=== PATIENT | male | born 2000 | race Caucasian/White ===

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

== ENCOUNTER 2018-05-19 23:11 | Emergency (ER) | payer OTHER ==
[~2018-05-19] VITALS: Ht 172.7 cm; Wt 51.7 kg
[~2018-05-19 23:11] MED LIST changes: -GADOBUTROL 10 MMOL/10 ML VIAL ONE; -GLUCAGON 1 MG ONE
[2018-05-20] MEDS ORDERED: MORPHINE SULFATE 4 MG/ML, 1ML ONE
[2018-05-20] MEDS ORDERED: MORPHINE SULFATE 4 MG/ML, 1ML IVPush PRN
[2018-05-20] MEDS ORDERED: SODIUM CHLORIDE 0.9% 1,000ML IVBOLUS ONE
[2018-05-20 00:20] LABS: ALANINE AMINOTRANSFERASE 11 U/L (12-78); ANION GAP 9 mmol/L (5-15); CALCIUM 8.7 mg/dL (8.5-10.1); CHLORIDE 104 mmol/L (98-107); CREATININE 0.93 mg/dL (0.7-1.3)
[2018-05-20 00:22] LABS: ALKALINE PHOSPHATASE 93 U/L (45-117); BILIRUBIN,TOTAL 0.4 mg/dL (0.2-1.0); TOTAL PROTEIN 7.2 g/dL (6.4-8.2)
[2018-05-20 00:25] LABS: MEAN CORPUSCULAR HEMOGLOBIN 30.6 pg (27.5-34.5); MEAN CORPUSCULAR HGB CONC 33.8 g/dL (33.2-36.2); MEAN CORPUSCULAR VOLUME 90.4 fL (81-97); MEAN PLATELET VOLUME 10.3 fL (7.4-10.4); PLATELET COUNT 267 x10^3/uL (130-400); RED BLOOD COUNT 4.99 x10^6/uL (4.38-5.82); RED CELL DISTRIBUTION WIDTH 12.7 % (9.4-14.8)
[2018-05-20 00:50] LABS: MD YES
[2018-05-20 00:52] LABS: LYMPH#(MANUAL) 3.48 x10^3/uL (1-6.1); LYMPHS% (MANUAL) 15 % (22-44); MONOS#(MANUAL) 1.16 x10^3/uL (0.3-2.7); MONOS% (MANUAL) 5 % (2-9); SEG#(MANUAL) 18.56 x10^3/uL (1.8-8); SEGS% (MANUAL) 80 % (42-75)
[2018-05-20 00:53] LABS: <PLATELET ESTIMATE> ADEQUATE; <RBC MORPHOLOGY> NORMAL; LARGE PLATELETS 1+
[2018-05-20 01:10] VITALS: BP 112/62
== END 2018-05-20 01:32 | disposition home or self-care (01) ==
LOC: ED 23:59
DX: K52.9 Noninfective gastroenteritis and colitis, unspecified (principal); K50.10 Crohn's disease of large intestine without complications
CPT/HCPCS: 36415; 80053; 83690; 85025; 96361; 96374; 99284; J7030

== ENCOUNTER → 2018-05-25 | Outpatient (CLI) | payer OTHER ==
[2018-05-25 15:48] LABS: CLOSTRIDIUM DIFFICILE ANTIGEN NEGATIVE; CLOSTRIDIUM DIFFICILE TOXIN NEGATIVE (Negative); CRYPTOSPORIDIUM ANTIGEN Negative (Negative)
== END | disposition home or self-care (01) ==
LOC: LAB 14:26
PROVIDERS: ATTEND Internal Medicine
DX: K50.90 Crohn's disease, unspecified, without complications (principal)
CPT/HCPCS: 36415; 86480; 86706; 87046; 87324; 87328; 87329; 87340; 87427; 89055

== ENCOUNTER 2018-06-02 19:14 | Inpatient (IN) | payer OTHER ==
[~2018-06-02] VITALS: Ht 172.7 cm; Wt 47.7 kg
[2018-06-02 19:58] LABS: MEAN CORPUSCULAR HEMOGLOBIN 30.9 pg (27.5-34.5); MEAN CORPUSCULAR VOLUME 90.7 fL (81-97); MEAN PLATELET VOLUME 9.3 fL (7.4-10.4); PLATELET COUNT 361 x10^3/uL (130-400); RED BLOOD COUNT 4.53 x10^6/uL (4.38-5.82)
[2018-06-02 20:07] LABS: ALANINE AMINOTRANSFERASE 13 U/L (12-78); ALBUMIN 2.9 g/dL (3.4-5.0); ANION GAP 13 mmol/L (5-15); CALCIUM 8.8 mg/dL (8.5-10.1); CHLORIDE 98 mmol/L (98-107); CREATININE 0.81 mg/dL (0.7-1.3)
[2018-06-02 20:10] LABS: ALKALINE PHOSPHATASE 90 U/L (45-117); BILIRUBIN,TOTAL 0.6 mg/dL (0.2-1.0); TOTAL PROTEIN 7.5 g/dL (6.4-8.2)
[2018-06-02 20:25] LABS: MD YES
[2018-06-02 20:27] LABS: <RBC MORPHOLOGY> NORMAL; BAND#(MANUAL) 0.71 x10^3/uL; BANDS%(MANUAL) 3 % (0-7); LYMPH#(MANUAL) 2.38 x10^3/uL (1-6.1); LYMPHS% (MANUAL) 10 % (22-44); MONOS#(MANUAL) 0.95 x10^3/uL (0.3-2.7); MONOS% (MANUAL) 4 % (2-9); SEG#(MANUAL) 19.75 x10^3/uL (1.8-8); SEGS% (MANUAL) 83 % (42-75)
[2018-06-02 20:28] LABS: <PLATELET ESTIMATE> ADEQUATE; <PLT MORPHOLOGY> NORMAL PLT MORPH
[2018-06-02] MEDS ORDERED: MORPHINE SULFATE 4 MG/ML, 1ML IVPush PRN (21:00)
[2018-06-02] MEDS ORDERED: SODIUM CHLORIDE FLUSH 10ML SYR IVF ONE (21:00)
[2018-06-02] MEDS ORDERED: MORPHINE SULFATE 4 MG/ML, 1ML ONE (21:12)
[2018-06-02] MEDS ORDERED: PROMETHAZINE 25MG TABLET PO ONE (21:50)
[2018-06-02] MEDS ORDERED: methylPREDNISolone SOD SUCC 125 MG/2 ML IVPush ONE (22:30)
[2018-06-02] MEDS ORDERED: methylPREDNISolone SOD SUCC 125 MG/2 ML ONE (22:53)
[2018-06-02] MEDS ORDERED: ONDANSETRON 2MG/ML, 2ML IVPush PRN (23:00)
[2018-06-02 23:44] VITALS: BP 115/73
[2018-06-03] MEDS ORDERED: PROMETHAZINE 25 MG/ML, 1ML IM PRN (00:30)
[2018-06-03] MEDS: D5%-0.45% NACL 1,000 ML IV SCH ×2 (01:12→09:00)
[2018-06-03] MEDS: morphine SULFATE 10 MG/ML, 1ML IVPush PRN ×4 (01:19→12:29)
[2018-06-03 03:10] VITALS: BP 107/56
[2018-06-03] MEDS ORDERED: ONDANSETRON ODT 4 MG PO PRN (04:00)
[2018-06-03 07:36] VITALS: BP 107/64
[2018-06-03] MEDS ORDERED: methylPREDNISolone SOD SUCC 40 MG/ML IV SCH (08:00)
[2018-06-03 09:47] LABS: MEAN CORPUSCULAR HEMOGLOBIN 30.4 pg (27.5-34.5); MEAN CORPUSCULAR HGB CONC 33.9 g/dL (33.2-36.2); MEAN CORPUSCULAR VOLUME 89.9 fL (81-97); MEAN PLATELET VOLUME 9.3 fL (7.4-10.4); PLATELET COUNT 329 x10^3/uL (130-400); RED BLOOD COUNT 4.28 x10^6/uL (4.38-5.82); RED CELL DISTRIBUTION WIDTH 13.1 % (9.4-14.8)
[2018-06-03] MEDS ORDERED: PRED20TA PO (10:55)
[2018-06-03 11:16] LABS: MD YES
[2018-06-03 11:18] LABS: BAND#(MANUAL) 1.42 x10^3/uL; BANDS%(MANUAL) 6 % (0-7); LYMPH#(MANUAL) 0.94 x10^3/uL (1-6.1); LYMPHS% (MANUAL) 4 % (22-44); MONOS#(MANUAL) 0.47 x10^3/uL (0.3-2.7); MONOS% (MANUAL) 2 % (2-9); SEG#(MANUAL) 20.77 x10^3/uL (1.8-8); SEGS% (MANUAL) 88 % (42-75)
[2018-06-03 11:20] LABS: <PLATELET ESTIMATE> ADEQUATE; <PLT MORPHOLOGY> NORMAL PLT MORPH; <RBC MORPHOLOGY> NORMAL
== END 2018-06-03 12:57 | disposition home or self-care (01) | DRG 387 ==
LOC: ED 21:56 → EDIP 22:49 → 3NW 23:39 → DCLOUNGE 06-03 12:49
PROVIDERS: ADMIT Internal Medicine; ATTEND Internal Medicine
DX: K50.811 Crohn's disease of both small and large intestine with rectal bleeding (principal); D72.829 Elevated white blood cell count, unspecified
CPT/HCPCS: 36415; 80053; 83690; 85025; 86850; 86900; 96374; 96375; G0378; J2270; J2920; J2930

== ENCOUNTER 2020-02-18 07:39 | Emergency (ER) | payer OTHER ==
[~2020-02-18] VITALS: Ht 172.7 cm; Wt 47.4 kg
[~2020-02-18 07:39] MED LIST changes: +PRED20TA PO
[2020-02-18] MEDS ORDERED: ONDANSETRON 2MG/ML, 2ML IVPush ONE (08:00)
[2020-02-18] MEDS ORDERED: SODIUM CHLORIDE 0.9% 1,000ML IVBOLUS ONE (08:00)
[2020-02-18] MEDS ORDERED: MORPHINE SULFATE 4 MG/ML, 1ML ONE ×2 (08:14→09:25)
[2020-02-18] MEDS ORDERED: ONDANSETRON 2MG/ML, 2ML ONE (08:14)
[2020-02-18] MEDS: MORPHINE SULFATE 4 MG/ML, 1ML IVPush PRN ×2 (08:15→09:27)
[2020-02-18 08:26] LABS: MEAN CORPUSCULAR VOLUME 87.8 fL (81-97); MEAN PLATELET VOLUME 9.5 fL (7.4-10.4); PLATELET COUNT 341 x10^3/uL (130-400); RED BLOOD COUNT 5.25 x10^6/uL (4.38-5.82); RED CELL DISTRIBUTION WIDTH 13.3 % (9.4-14.8)
[2020-02-18 08:37] LABS: ALANINE AMINOTRANSFERASE 12 U/L (12-78); ALBUMIN 3.1 g/dL (3.4-5.0); ANION GAP 10 mmol/L (5-15); CHLORIDE 103 mmol/L (98-107); CREATININE 0.88 mg/dL (0.7-1.3)
[2020-02-18 08:43] LABS: ALKALINE PHOSPHATASE 96 U/L (45-117); BILIRUBIN,TOTAL 0.5 mg/dL (0.2-1.0); TOTAL PROTEIN 7.8 g/dL (6.4-8.2)
[2020-02-18 08:44] LABS: HCT (SEDRATE) 46.1 % (39.2-51.8)
[2020-02-18 08:45] LABS: BASOPHILS # (AUTO) 0.01 x10^3/uL (0-0.1); BASOPHILS % (AUTO) 0 % (0-1); EOSINOPHILS % (AUTO) 1 % (1-7); LYMPHOCYTES # (AUTO) 1.53 x10^3/uL (1-3.4); LYMPHOCYTES % (AUTO) 8 % (22-44); MD SCAN; MONOCYTES # (AUTO) 0.61 x10^3/uL (0.2-0.8); MONOCYTES % (AUTO) 3 % (2-9); NEUTROPHILS % (AUTO) 88 % (42-75)
[2020-02-18] MEDS ORDERED: OMNIPAQUE 350 MG/ML, 100ML BOTTLE ONE (09:13)
[2020-02-18] MEDS ORDERED: metroNIDAZOLE 500 MG TABLET PO ONE (11:00)
[2020-02-18] MEDS ORDERED: metroNIDAZOLE 500 MG TABLET ONE (11:05)
[2020-02-18 11:07] LABS: MICROSCOPIC NOT IND
[2020-02-18 11:11] VITALS: BP 111/60
== END 2020-02-18 11:20 | disposition home or self-care (01) ==
LOC: ED 08:27
DX: K50.00 Crohn's disease of small intestine without complications (principal); K92.2 Gastrointestinal hemorrhage, unspecified; D72.829 Elevated white blood cell count, unspecified
CPT/HCPCS: 36415; 74177; 80053; 81003; 83605; 83690; 83735; 84100; 85025; 85651; 86140; 87040; 96361; 96374; 96375; 96376; 99285; J2270; J2405; J7030; J7512; Q9967

== ENCOUNTER 2020-02-27 04:06 | Emergency (ER) | payer OTHER ==
[~2020-02-27] VITALS: Ht 170.2 cm; Wt 64.8 kg
[2020-02-27] MEDS ORDERED: SODIUM CHLORIDE 0.9% 1,000 ML IV ONE (04:41)
[2020-02-27] MEDS ORDERED: SODIUM CHLORIDE 0.9% 1,000ML IVBOLUS ONE (05:00)
[2020-02-27] MEDS ORDERED: MORPHINE SULFATE 4 MG/ML, 1ML IVPush PRN (05:00)
[2020-02-27] MEDS ORDERED: ONDANSETRON 2MG/ML, 2ML IVPush ONE (05:00)
[2020-02-27] MEDS ORDERED: FAMOTIDINE 20 MG/2 ML IVPush ONE (05:00)
[2020-02-27 05:01] LABS: MEAN CORPUSCULAR HEMOGLOBIN 28.9 pg (27.5-34.5); MEAN CORPUSCULAR HGB CONC 33.2 g/dL (33.2-36.2); MEAN CORPUSCULAR VOLUME 87.1 fL (81-97); MEAN PLATELET VOLUME 9.6 fL (7.4-10.4); PLATELET COUNT 331 x10^3/uL (130-400); RED BLOOD COUNT 4.99 x10^6/uL (4.38-5.82); RED CELL DISTRIBUTION WIDTH 13.9 % (9.4-14.8)
[2020-02-27 05:08] LABS: ALANINE AMINOTRANSFERASE 18 U/L (12-78); ANION GAP 6 mmol/L (5-15); CALCIUM 8.6 mg/dL (8.5-10.1); CHLORIDE 104 mmol/L (98-107); CREATININE 0.82 mg/dL (0.7-1.3)
[2020-02-27 05:14] LABS: ALKALINE PHOSPHATASE 89 U/L (45-117); BILIRUBIN,TOTAL 0.5 mg/dL (0.2-1.0); TOTAL PROTEIN 7.4 g/dL (6.4-8.2)
[2020-02-27] MEDS ORDERED: MORPHINE SULFATE 4 MG/ML, 1ML ONE (05:42)
[2020-02-27] MEDS ORDERED: ONDANSETRON 2MG/ML, 2ML ONE (05:42)
[2020-02-27] MEDS ORDERED: FAMOTIDINE 20 MG/2 ML ONE (05:43)
[2020-02-27 05:48] LABS: BASOPHILS # (AUTO) 0.07 x10^3/uL (0-0.1); BASOPHILS % (AUTO) 0 % (0-1); EOSINOPHILS # (AUTO) 0.11 x10^3/uL (0-0.4); EOSINOPHILS % (AUTO) 1 % (1-7); LYMPHOCYTES # (AUTO) 2.52 x10^3/uL (1-3.4); LYMPHOCYTES % (AUTO) 12 % (22-44); MD SCAN; MONOCYTES # (AUTO) 0.71 x10^3/uL (0.2-0.8); MONOCYTES % (AUTO) 3 % (2-9); NEUTROPHILS # (AUTO) 18.01 x10^3/uL (1.8-6.8); NEUTROPHILS % (AUTO) 84 % (42-75)
--- NOTE | 2020-02-27 06:36 | NUR ---
Pt resting quietly and states pain has decreased to 5/10 now. Pt w/ soup broth at bedside and provided vomit bag.
--- NOTE | 2020-02-27 06:50 | NUR ---
Report from Rajeev BONNER. Pt resting in bed, states nausea and pain improved after meds, denies other needs.
[2020-02-27 07:44] LABS: MICROSCOPIC INDICATED
[2020-02-27 08:40] VITALS: BP 108/59
== END 2020-02-27 08:42 | disposition home or self-care (01) ==
LOC: ED 04:41
DX: K50.00 Crohn's disease of small intestine without complications (principal); R11.2 Nausea with vomiting, unspecified; R10.84 Generalized abdominal pain; F17.200 Nicotine dependence, unspecified, uncomplicated
CPT/HCPCS: 36415; 76700; 80053; 81001; 83690; 85025; 87086; 96361; 96374; 96375; 99284; J2270; J2405; J3490; J7030

== ENCOUNTER 2020-03-01 13:21 | Inpatient (IN) | payer OTHER ==
[~2020-03-01] VITALS: Ht 170.2 cm; Wt 48.8 kg
--- NOTE | 2020-03-01 14:11 | NUR ---
[employer]:PT TO ROOM FROM LOBBY
[2020-03-01] MEDS ORDERED: ONDANSETRON 2MG/ML, 2ML IVPush ONE (15:00)
[2020-03-01] MEDS ORDERED: SODIUM CHLORIDE 0.9% 1,000ML IVBOLUS ONE (15:00)
[2020-03-01] MEDS ORDERED: SODIUM CHLORIDE FLUSH 10ML SYR IVF ONE (15:00)
[2020-03-01] MEDS ORDERED: ONDANSETRON 2MG/ML, 2ML ONE (15:00)
[2020-03-01] MEDS ORDERED: MORPHINE SULFATE 4 MG/ML, 1ML ONE ×2 (15:01→19:57)
[2020-03-01] MEDS: MORPHINE SULFATE 4 MG/ML, 1ML IVPush PRN ×2 (15:03→19:58)
[2020-03-01] MEDS ORDERED: methylPREDNISolone SOD SUCC 40 MG/ML ONE (15:11)
[2020-03-01 15:19] LABS: ALANINE AMINOTRANSFERASE 14 U/L (12-78); ALBUMIN 2.9 g/dL (3.4-5.0); ANION GAP 8 mmol/L (5-15); CALCIUM 8.7 mg/dL (8.5-10.1); CHLORIDE 101 mmol/L (98-107)
[2020-03-01 15:22] LABS: ALKALINE PHOSPHATASE 82 U/L (45-117); BILIRUBIN,TOTAL 0.7 mg/dL (0.2-1.0); CREATININE 0.78 mg/dL (0.7-1.3); TOTAL PROTEIN 7.2 g/dL (6.4-8.2)
[2020-03-01 15:25] LABS: MEAN CORPUSCULAR HEMOGLOBIN 28.7 pg (27.5-34.5); MEAN CORPUSCULAR VOLUME 87.1 fL (81-97); MEAN PLATELET VOLUME 9.3 fL (7.4-10.4); PLATELET COUNT 354 x10^3/uL (130-400); RED BLOOD COUNT 4.78 x10^6/uL (4.38-5.82); RED CELL DISTRIBUTION WIDTH 13.8 % (9.4-14.8)
[2020-03-01] MEDS ORDERED: methylPREDNISolone SOD SUCC 40 MG/ML IV ONE (15:30)
[2020-03-01 15:51] LABS: BASOPHILS # (AUTO) 0.06 x10^3/uL (0-0.1); BASOPHILS % (AUTO) 1 % (0-1); EOSINOPHILS # (AUTO) 0.12 x10^3/uL (0-0.4); EOSINOPHILS % (AUTO) 1 % (1-7); LYMPHOCYTES # (AUTO) 1.78 x10^3/uL (1-3.4); LYMPHOCYTES % (AUTO) 13 % (22-44); MD SCAN; MONOCYTES # (AUTO) 0.53 x10^3/uL (0.2-0.8); MONOCYTES % (AUTO) 4 % (2-9); NEUTROPHILS # (AUTO) 11.09 x10^3/uL (1.8-6.8); NEUTROPHILS % (AUTO) 82 % (42-75)
[2020-03-01] MEDS ORDERED: LABETALOL 5MG/ML, 20ML IVPush PRN (16:30)
[2020-03-01] MEDS ORDERED: PROMETHAZINE 25 MG/ML, 1ML IM PRN (16:30)
[2020-03-01] MEDS ORDERED: ACETAMINOPHEN 325 MG TABLET PO PRN (16:30)
[2020-03-01] MEDS: methylPREDNISolone SOD SUCC 125 MG/2 ML IVPush SCH ×2 (16:30→22:32)
--- NOTE | 2020-03-01 16:42 | NUR ---
PT TO IMAGING AT THIS TIME.
[2020-03-01] MEDS ORDERED: GADOTERATE 5 MMOL/10 ML VIAL ONE (16:59)
[2020-03-01 17:06] LABS: TOTAL IRON BINDING CAPACITY 219 mcg/dL (250-450)
[2020-03-01 17:25] LABS: % IRON SATURATION 21 % (20-55); IRON LEVEL 45 mcg/dL (65-175)
[2020-03-01 17:33] LABS: HCT (SEDRATE) 41.6 % (39.2-51.8)
--- NOTE | 2020-03-01 18:08 | NUR ---
PT RRESTING IN BED, MOM CONTINUES AT BEDSIDE. PT UPDATED ON PLAN OF CARE. VERBALIZES UNDERSTANDING. DENIES ANY NEEDS OR CONCERNS AT THIS TIME. CALL LIGHT IN REACH.
--- NOTE | 2020-03-01 20:03 | NUR ---
ATTEMPTED TO CALL REPORT. RN OCCUPIED WITH ANOTHER PATIENT-TO CALL BACK
--- NOTE | 2020-03-01 20:43 | NUR ---
REPORT TO HA CRAIN. PT AWAITING TRANSPORT AT THIS TIME.
[2020-03-01] MEDS: SODIUM CHLORIDE 0.9% 1,000 ML IV SCH (21:15)
[2020-03-01 21:29] VITALS: BP 122/64
[2020-03-01] MEDS: ONDANSETRON 2MG/ML, 2ML IVPush PRN (21:31)
[2020-03-01 23:28] LABS: CLOSTRIDIUM DIFFICILE ANTIGEN NEGATIVE; CLOSTRIDIUM DIFFICILE TOXIN NEGATIVE (Negative)
[2020-03-02] MEDS: MORPHINE SULFATE 4 MG/ML, 1ML IVPush PRN ×5 (01:41→20:21)
[2020-03-02 02:18] VITALS: BP 102/61
[2020-03-02] MEDS: ONDANSETRON 2MG/ML, 2ML IVPush PRN ×4 (03:38→22:34)
[2020-03-02 04:28] LABS: MEAN CORPUSCULAR HEMOGLOBIN 28.9 pg (27.5-34.5); MEAN CORPUSCULAR HGB CONC 33.4 g/dL (33.2-36.2); MEAN CORPUSCULAR VOLUME 86.6 fL (81-97); MEAN PLATELET VOLUME 9.9 fL (7.4-10.4); PLATELET COUNT 355 x10^3/uL (130-400); RED CELL DISTRIBUTION WIDTH 13.6 % (9.4-14.8)
[2020-03-02 04:34] LABS: ALBUMIN 2.9 g/dL (3.4-5.0); ANION GAP 4 mmol/L (5-15); CALCIUM 8.6 mg/dL (8.5-10.1); CHLORIDE 106 mmol/L (98-107)
[2020-03-02] MEDS: methylPREDNISolone SOD SUCC 125 MG/2 ML IVPush SCH ×4 (04:36→22:34)
[2020-03-02 04:38] LABS: ALANINE AMINOTRANSFERASE 17 U/L (12-78); ALKALINE PHOSPHATASE 77 U/L (45-117); BILIRUBIN,TOTAL 0.7 mg/dL (0.2-1.0); CREATININE 0.69 mg/dL (0.7-1.3)
[2020-03-02 04:45] LABS: BASOPHILS # (AUTO) 0.01 x10^3/uL (0-0.1); BASOPHILS % (AUTO) 0 % (0-1); EOSINOPHILS # (AUTO) 0.01 x10^3/uL (0-0.4); EOSINOPHILS % (AUTO) 0 % (1-7); LYMPHOCYTES # (AUTO) 0.54 x10^3/uL (1-3.4); LYMPHOCYTES % (AUTO) 3 % (22-44); MD SCAN; MONOCYTES # (AUTO) 0.06 x10^3/uL (0.2-0.8); MONOCYTES % (AUTO) 0 % (2-9); NEUTROPHILS # (AUTO) 17.01 x10^3/uL (1.8-6.8); NEUTROPHILS % (AUTO) 97 % (42-75)
[2020-03-02] MEDS: SODIUM CHLORIDE 0.9% 1,000 ML IV SCH ×2 (06:28→16:31)
[2020-03-02 07:05] VITALS: BP 120/66
[2020-03-02 12:55] VITALS: BP 124/60
[2020-03-02 18:41] VITALS: BP 102/52
[2020-03-03 00:23] VITALS: BP 93/65
[2020-03-03] MEDS: SODIUM CHLORIDE 0.9% 1,000 ML IV SCH ×3 (02:30→20:15)
[2020-03-03] MEDS: MORPHINE SULFATE 4 MG/ML, 1ML IVPush PRN ×4 (02:53→22:14)
[2020-03-03] MEDS: ONDANSETRON 2MG/ML, 2ML IVPush PRN ×3 (04:35→17:25)
[2020-03-03] MEDS: methylPREDNISolone SOD SUCC 125 MG/2 ML IVPush SCH ×4 (04:35→22:14)
[2020-03-03 06:12] LABS: MEAN CORPUSCULAR HEMOGLOBIN 28.8 pg (27.5-34.5); MEAN CORPUSCULAR HGB CONC 33.1 g/dL (33.2-36.2); PLATELET COUNT 311 x10^3/uL (130-400); RED CELL DISTRIBUTION WIDTH 13.6 % (9.4-14.8)
[2020-03-03 06:32] LABS: MD YES
[2020-03-03 06:35] LABS: <PLATELET ESTIMATE> ADEQUATE; <PLT MORPHOLOGY> NORMAL PLT MORPH; <RBC MORPHOLOGY> NORMAL; BAND#(MANUAL) 0.78 x10^3/uL; BANDS%(MANUAL) 7 % (0-7); LYMPH#(MANUAL) 1.11 x10^3/uL (1-3.4); LYMPHS% (MANUAL) 10 % (22-44); MONOS#(MANUAL) 0.33 x10^3/uL (0.3-2.7); MONOS% (MANUAL) 3 % (2-9); SEG#(MANUAL) 8.88 x10^3/uL (1.8-6.8); SEGS% (MANUAL) 80 % (42-75)
[2020-03-03 06:38] VITALS: BP 117/67
[2020-03-03 13:42] VITALS: BP 115/65
[2020-03-03 19:54] VITALS: BP 115/68
[2020-03-04 00:24] VITALS: BP 104/52
[2020-03-04] MEDS: methylPREDNISolone SOD SUCC 125 MG/2 ML IVPush SCH ×4 (04:51→22:30)
[2020-03-04] MEDS: SODIUM CHLORIDE 0.9% 1,000 ML IV SCH ×2 (07:15→18:36)
[2020-03-04] MEDS: MORPHINE SULFATE 4 MG/ML, 1ML IVPush PRN ×4 (07:15→22:35)
[2020-03-04 07:21] VITALS: BP 107/52
[2020-03-04 13:30] VITALS: BP 123/68
[2020-03-04] MEDS: OXYcodone/APAP 5/325MG TABLET PO PRN (14:49)
[2020-03-04 18:57] VITALS: BP 92/51
[2020-03-05 00:34] VITALS: BP 112/64
[2020-03-05] MEDS: SODIUM CHLORIDE 0.9% 1,000 ML IV SCH ×2 (04:55→14:46)
[2020-03-05] MEDS: methylPREDNISolone SOD SUCC 125 MG/2 ML IVPush SCH ×2 (05:10→11:10)
[2020-03-05] MEDS: MORPHINE SULFATE 4 MG/ML, 1ML IVPush PRN ×2 (05:10→09:55)
[2020-03-05 07:37] VITALS: BP 119/53
[2020-03-05 12:21] VITALS: BP 101/66
[2020-03-05] MEDS: OXYcodone/APAP 5/325MG TABLET PO PRN ×2 (17:14→23:13)
[2020-03-05 18:52] VITALS: BP 99/57
[2020-03-06] MEDS: SODIUM CHLORIDE 0.9% 1,000 ML IV SCH (00:08)
[2020-03-06 01:41] VITALS: BP 102/57
[2020-03-06 06:24] VITALS: BP 121/66
[2020-03-06] MEDS ORDERED: methylPREDNISolone SOD SUCC 125 MG/2 ML IVPush SCH (09:00)
[2020-03-06] MEDS: OXYcodone/APAP 5/325MG TABLET PO PRN (09:08)
[2020-03-06] MEDS ORDERED: ACET325T26 PO (12:27)
[2020-03-06] MEDS ORDERED: PRED20TA PO ×3 (12:27→12:39)
== END 2020-03-06 14:31 | disposition home or self-care (01) | DRG 385 ==
LOC: ED 15:59 → EDIP 16:11 → 3N 21:08 → DCLOUNGE 03-06 14:25
PROVIDERS: ADMIT Internal Medicine; ATTEND Internal Medicine
DX: K50.90 Crohn's disease, unspecified, without complications (principal); E43 Unspecified severe protein-calorie malnutrition; E87.1 Hypo-osmolality and hyponatremia; Z68.1 Body mass index [BMI] 19.9 or less, adult; K62.5 Hemorrhage of anus and rectum; F17.210 Nicotine dependence, cigarettes, uncomplicated; D72.829 Elevated white blood cell count, unspecified; D64.9 Anemia, unspecified; E86.0 Dehydration; K12.0 Recurrent oral aphthae; K21.9 Gastro-esophageal reflux disease without esophagitis
CPT/HCPCS: 36415; 74183; 80053; 83540; 83550; 83993; 85025; 85651; 86704; 86705; 86706; 86708; 86803; 87324; 87340; 96361; 96374; 96375; 96376; 99285; A9575; G0378; J2405; J2270; J2920; J2930; J7030; J7512

== ENCOUNTER → 2020-03-30 | Outpatient (CLI) | payer OTHER ==
[~2020-03-30] MED LIST changes: +ACET325T26 PO
== END | disposition home or self-care (01) ==
LOC: LAB 12:11
PROVIDERS: ATTEND Internal Medicine
DX: K50.10 Crohn's disease of large intestine without complications (principal)
CPT/HCPCS: 36415; 86480

== ENCOUNTER 2020-05-05 16:35 | Inpatient (IN) | payer OTHER ==
[~2020-05-05] VITALS: Ht 170.2 cm; Wt 54.5 kg
[2020-05-05] MEDS ORDERED: ADAL40PE2 SQ (17:00)
--- NOTE | 2020-05-05 17:01 | NUR ---
TASK RN: CONTACT WITH PT. PT HERE WITH C/O ABD PAIN, N/V FOR PAST 2 DAYS. PT WITH HX OF CROHNS DISEASE. PT WITH GRIMISES. DR PÉREZ AT BEDSIDE TO EVAL PT
[2020-05-05] MEDS ORDERED: ONDANSETRON 2MG/ML, 2ML ONE (17:14)
[2020-05-05] MEDS ORDERED: MORPHINE SULFATE 4 MG/ML, 1ML ONE ×2 (17:15→19:01)
[2020-05-05] MEDS: MORPHINE SULFATE 4 MG/ML, 1ML IVPush PRN ×2 (17:17→19:04)
--- NOTE | 2020-05-05 17:24 | NUR ---
PT MEDICATED FOR 10/10 PAIN AND NAUSEA ORDERED. NS INFUSING WITHOUT REDNESS/SWELLING. PT AND PTS MOTHER UP DATED ON POC. NO NEEDS EXPRESSED AT THIS TIME. .
[2020-05-05] MEDS ORDERED: SODIUM CHLORIDE FLUSH 10ML SYR IVF ONE (17:30)
[2020-05-05] MEDS ORDERED: ONDANSETRON 2MG/ML, 2ML IVPush ONE (17:30)
[2020-05-05] MEDS ORDERED: SODIUM CHLORIDE 0.9% 1,000ML IVBOLUS ONE (17:30)
--- NOTE | 2020-05-05 17:31 | NUR ---
PT REPORT FROM HA GHOTRA. PT CARE TO BE ASSUMED.
--- NOTE | 2020-05-05 17:33 | NUR ---
REPORT TO MINDI BONNER
[2020-05-05 17:53] LABS: ALANINE AMINOTRANSFERASE 17 U/L (12-78); ALBUMIN 3.9 g/dL (3.4-5.0); ANION GAP 12 mmol/L (5-15); CALCIUM 9.9 mg/dL (8.5-10.1); CHLORIDE 102 mmol/L (98-107); CREATININE 1.03 mg/dL (0.7-1.3)
[2020-05-05 18:00] LABS: ALKALINE PHOSPHATASE 99 U/L (45-117); BILIRUBIN,TOTAL 0.9 mg/dL (0.2-1.0); TOTAL PROTEIN 8.4 g/dL (6.4-8.2)
[2020-05-05 18:17] LABS: MEAN CORPUSCULAR HGB CONC 32.4 g/dL (33.2-36.2); MEAN CORPUSCULAR VOLUME 89.4 fL (81-97); MEAN PLATELET VOLUME 10.7 fL (7.4-10.4); PLATELET COUNT 265 x10^3/uL (130-400); RED BLOOD COUNT 5.39 x10^6/uL (4.38-5.82); RED CELL DISTRIBUTION WIDTH 15.9 % (9.4-14.8)
[2020-05-05] MEDS ORDERED: LACTATED RINGERS 1,000 ML IVBOLUS ONE (18:30)
--- NOTE | 2020-05-05 18:58 | NUR ---
LR BOLUS HUNG; IV SITE PATENT. PT RATES PAIN AT 8/10. PT'S MOM IN ROOM
--- NOTE | 2020-05-05 19:06 | NUR ---
MORPHINE GIVEN PER EMAR.
[2020-05-05 19:20] LABS: MD YES
[2020-05-05 19:24] LABS: <PLATELET ESTIMATE> ADEQUATE; <PLT MORPHOLOGY> NORMAL PLT MORPH; <RBC MORPHOLOGY> NORMAL; BAND#(MANUAL) 1.55 x10^3/uL; BANDS%(MANUAL) 7 % (0-7); BASOS#(MANUAL) 0.44 x10^3/uL (0-0.1); BASOS% (MANUAL) 2 % (0-1); EOS#(MANUAL) 0.67 x10^3/uL (0.0-0.4); EOS% (MANUAL) 3 % (1-7); LYMPHS% (MANUAL) 18 % (22-44); MONOS% (MANUAL) 9 % (2-9); SEG#(MANUAL) 13.54 x10^3/uL (1.8-6.8); SEGS% (MANUAL) 61 % (42-75)
[2020-05-05 19:45] LABS: HCT (SEDRATE) 48.2 % (39.2-51.8)
--- NOTE | 2020-05-05 19:55 | NUR ---
PT REPORT TO HA VELOZ FOR ROOM [id number]
[2020-05-05] MEDS ORDERED: BISACODYL 10 MG SUPP PR PRN (21:00)
[2020-05-05] MEDS ORDERED: MELATONIN 5 MG TABLET PO PRN (21:00)
[2020-05-05] MEDS: morphine SULFATE 10 MG/ML, 1ML IVPush PRN (21:41)
[2020-05-05 21:45] VITALS: BP 112/70
[2020-05-05] MEDS: LACTATED RINGERS 1,000 ML IV SCH (22:43)
[2020-05-06] MEDS: morphine SULFATE 10 MG/ML, 1ML IVPush PRN ×2 (02:24→06:28)
[2020-05-06] MEDS: ONDANSETRON 2MG/ML, 2ML IVPush PRN ×2 (02:29→09:51)
[2020-05-06 02:32] VITALS: BP 108/65
[2020-05-06 05:28] LABS: MEAN CORPUSCULAR HGB CONC 32.7 g/dL (33.2-36.2); MEAN CORPUSCULAR VOLUME 88.8 fL (81-97); MEAN PLATELET VOLUME 10.3 fL (7.4-10.4); PLATELET COUNT 231 x10^3/uL (130-400); RED CELL DISTRIBUTION WIDTH 15.8 % (9.4-14.8)
[2020-05-06 05:35] LABS: ANION GAP 4 mmol/L (5-15); CALCIUM 9.2 mg/dL (8.5-10.1); CHLORIDE 108 mmol/L (98-107); CREATININE 0.76 mg/dL (0.7-1.3)
[2020-05-06 05:59] LABS: BASOPHILS # (AUTO) 0.06 x10^3/uL (0-0.1); BASOPHILS % (AUTO) 0 % (0-1); EOSINOPHILS # (AUTO) 0.01 x10^3/uL (0-0.4); EOSINOPHILS % (AUTO) 0 % (1-7); LYMPHOCYTES # (AUTO) 1.48 x10^3/uL (1-3.4); LYMPHOCYTES % (AUTO) 8 % (22-44); MD SCAN; MONOCYTES # (AUTO) 0.91 x10^3/uL (0.2-0.8); MONOCYTES % (AUTO) 5 % (2-9); NEUTROPHILS # (AUTO) 15.45 x10^3/uL (1.8-6.8); NEUTROPHILS % (AUTO) 86 % (42-75)
[2020-05-06] MEDS: LACTATED RINGERS 1,000 ML IV SCH (06:28)
[2020-05-06 08:00] VITALS: BP 110/70
[2020-05-06] MEDS: LACTOBACILLUS CHEW TABLET PO SCH ×3 (08:19→19:58)
[2020-05-06] MEDS ORDERED: OMNIPAQUE 350 MG/ML, 100ML BOTTLE ONE (08:39)
[2020-05-06] MEDS: MORPHINE SULFATE 4 MG/ML, 1ML IVPush PRN ×5 (09:52→20:14)
[2020-05-06 13:40] VITALS: BP 111/68
[2020-05-06 14:42] VITALS: BP 110/59
[2020-05-06] MEDS: METRONIDAZOLE PMX 500MG/100ML 100 ML IV SCH ×2 (15:42→22:40)
[2020-05-06] MEDS: CIPROFLOXACIN LACTATE 200 MG in DEXTROSE 5% 100 ML IV SCH (17:12)
[2020-05-06 19:58] VITALS: BP 119/60
[2020-05-06] MEDS ORDERED: LACTATED RINGERS 1,000 ML IV SCH (21:00)
[2020-05-06 22:45] VITALS: BP 112/59
[2020-05-07 02:55] VITALS: BP 119/58
[2020-05-07] MEDS: CIPROFLOXACIN LACTATE 200 MG in DEXTROSE 5% 100 ML IV SCH (05:30)
[2020-05-07] MEDS: MORPHINE SULFATE 4 MG/ML, 1ML IVPush PRN (05:36)
[2020-05-07] MEDS: METRONIDAZOLE PMX 500MG/100ML 100 ML IV SCH (06:37)
[2020-05-07 06:43] LABS: BASOPHILS # (AUTO) 0.04 x10^3/uL (0-0.1); BASOPHILS % (AUTO) 0 % (0-1); EOSINOPHILS % (AUTO) 1 % (1-7); LYMPHOCYTES # (AUTO) 1.71 x10^3/uL (1-3.4); LYMPHOCYTES % (AUTO) 17 % (22-44); MD NO; MEAN CORPUSCULAR HEMOGLOBIN 28.7 pg (27.5-34.5); MEAN CORPUSCULAR HGB CONC 32.7 g/dL (33.2-36.2); MEAN CORPUSCULAR VOLUME 87.9 fL (81-97); MEAN PLATELET VOLUME 9.8 fL (7.4-10.4); MONOCYTES # (AUTO) 0.62 x10^3/uL (0.2-0.8); MONOCYTES % (AUTO) 6 % (2-9); NEUTROPHILS # (AUTO) 7.39 x10^3/uL (1.8-6.8); NEUTROPHILS % (AUTO) 75 % (42-75); PLATELET COUNT 199 x10^3/uL (130-400); RED BLOOD COUNT 4.66 x10^6/uL (4.38-5.82); RED CELL DISTRIBUTION WIDTH 15.3 % (9.4-14.8)
[2020-05-07 07:21] VITALS: BP 98/55
[2020-05-07] MEDS: LACTOBACILLUS CHEW TABLET PO SCH (08:36)
[2020-05-07] MEDS ORDERED: CIPR500T87 PO (12:05)
[2020-05-07] MEDS ORDERED: METR500T PO (12:05)
[2020-05-07] MEDS ORDERED: ACID1TAB7 PO (12:05)
[2020-05-07 12:20] VITALS: BP 94/51
[2020-05-07] MEDS ORDERED: metroNIDAZOLE 500 MG TABLET PO SCH (16:00)
[2020-05-07] MEDS ORDERED: CIPROFLOXACIN 500 MG TABLET PO SCH (21:00)
== END 2020-05-07 15:15 | disposition home or self-care (01) | DRG 386 ==
LOC: ED 17:25 → EDIP 19:29 → 3N 21:27 → DCLOUNGE 05-07 15:01
PROVIDERS: ADMIT Family Medicine; ATTEND Internal Medicine
DX: K50.90 Crohn's disease, unspecified, without complications (principal); K56.600 Partial intestinal obstruction, unspecified as to cause; G47.00 Insomnia, unspecified; D72.829 Elevated white blood cell count, unspecified; Z87.891 Personal history of nicotine dependence
CPT/HCPCS: 36415; 74021; 74177; 80048; 80053; 83690; 85025; 85651; 86140; G0378; J2405; Q9967; J0744; J2270; J7030; J7120